=== PATIENT | female | born 1965 | race Caucasian/White ===

== ENCOUNTER 2017-05-14 09:35 | Emergency (ER) | payer BC ==
[~2017-05-14] VITALS: Ht 167.6 cm; Wt 56.0 kg
[~2017-05-14 09:35] MED LIST: DARVOCET OR; MELOXICAM7.5 MG PO; SOMA350 MG PO; TOPAMAX25 MG PO; VICODIN ES1 TA1 PO; VICODIN1 TAB OR; ZOFRAN ODT8 MG SL; ZOLOFT50 MG PO; [UNRECOGNIZED DRUG - OTHER]
[2017-05-14 10:37] LABS: HEMATOCRIT 38.3 % (37.0-47.0); HEMOGLOBIN 12.6 g/dl (12.0-16.0); IMMATURE GRANULOCYTES 0.2 % (0.0-1.0); MEAN CELL VOLUME 97.5 fL CALC (80.0-100.0); MEAN CORPUSCULAR HGB 32.1 pG CALC (26.0-32.0); MEAN CORPUSCULAR HGB CONC 32.9 g/L CALC (32.0-36.0); NEUT# 4.85 thou/uL (2.00-7.15); RED BLOOD COUNT 3.93 mill/uL (4.20-5.60); RED CELL DISTRI WIDTH 12.7 % (11.5-15.5)
[2017-05-14 10:58] LABS: ALBUMIN 4.3 g/dL (3.2-5.0); ALKALINE PHOSPHATASE 76 u/l (38-126); AMYLASE 36 u/l (30-110); ANION GAP 14 (6-22 (CALC)); BILIRUBIN, TOTAL 0.4 mg/dL (0.0-1.4); BUN 28 mg/dL (7-17); BUN/CREATININE RATIO 34 (12-20 (CALC)); CALCIUM 9.9 mg/dL (8.4-10.2); CARBON DIOXIDE 29 mmol/l (22-30); CHLORIDE 103 mmol/l (95-108); CREATININE 0.8 mg/dL (0.5-1.0); GFR > 60 ML/MIN (>=60 (CALC)); GFR FOR AFR.AMER. > 60 ML/MIN (>=60 (CALC)); GLUCOSE 92 mg/dL (65-105); LIPASE 123 u/l (23-300); POTASSIUM 4.3 mmol/l (3.5-5.1); SGOT/AST 25 u/l (14-36); SGPT/ALT 35 u/l (9-52); SODIUM 141 mmol/l (137-146); TOTAL PROTEIN 6.9 g/dL (6.3-8.2)
[2017-05-14 11:08] LABS: MYOGLOBIN 21 ng/mL (0 - 62)
[2017-05-14] MEDS ORDERED: XANAX0.25 MG PO (12:54)
[2017-05-14] MEDS ORDERED: NORCO1 TA1 PO (15:07)
[2017-05-14 15:24] VITALS: BP 133/69
== END 2017-05-14 15:20 | disposition home or self-care (01) | DRG 313 ==
LOC: ED 09:35
PROVIDERS: Emergency Medicine
DX: R07.89 Other chest pain (principal)